=== PATIENT | female | born 1985 | race Caucasian/White ===

== ENCOUNTER 2018-11-14 21:24 | Emergency (ER) | payer BC ==
[~2018-11-14] VITALS: Ht 167.6 cm; Wt 74.8 kg
[2018-11-14] MEDS ORDERED: KETOROLAC TROMETHAMINE 15 MG INJ IVP ONE (21:45)
[2018-11-14] MEDS ORDERED: IV NORMAL SALINE 1000 ML BAG IV ONE (21:45)
[2018-11-14] MEDS ORDERED: FENTANYL CITRATE 100 MCG/2 ML AMPUL IV ONE (21:45)
--- NOTE | 2018-11-14 21:45 | NUR ---
DR. HAYWARD AT BEDSIDE FOR MSE.
[2018-11-14] MEDS ORDERED: KETOROLAC TROMETHAMINE 15 MG INJ ONE (21:54)
[2018-11-14] MEDS ORDERED: FENTANYL CITRATE 100 MCG/2 ML AMPUL ONE (21:55)
[2018-11-14 22:10] LABS: BASOPHILS # (AUTO) 0.1 K/uL (0.0-8.0); BASOPHILS % (AUTO) 0.5 % (0.0-2.0); EOSINOPHILS # (AUTO) 0.5 K/uL (0.0-0.7); HEMATOCRIT 33.5 % (31.2-41.9); HEMOGLOBIN 11.1 g/dL (10.9-14.3); LYMPHOCYTES # (AUTO) 2.2 K/uL (20.0-40.0); LYMPHOCYTES % (AUTO) 22.5 % (20.5-51.5); MEAN CORPUSCULAR HEMOGLOBIN 27.9 uug (24.7-32.8); MEAN CORPUSCULAR HGB CONC 33 g/dL (32.3-35.6); MEAN CORPUSCULAR VOLUME 84.3 fL (75.5-95.3); MONOCYTES # (AUTO) 0.5 K/uL (2.0-10.0); NEUTROPHILS # (AUTO) 6.6 K/uL (1.8-8.9); PLATELET COUNT (AUTO) 235 K/uL (179-408); RED BLOOD CELL COUNT(AUTO) 3.98 MIL/uL (3.63-4.92); WHITE BLOOD COUNT (AUTO) 9.9 K/uL (3.8-11.8)
[2018-11-14 22:13] LABS: CREATININE 0.9 mg/dL (0.6-1.3); POTASSIUM 3.7 mmol/L (3.5-5.1)
[2018-11-14 22:19] LABS: BILIRUBIN,DIRECT 0.1 mg/dL (0.0-0.2); BILIRUBIN,TOTAL 0.3 mg/dL (0.2-1.0); TOTAL PROTEIN, SERUM 7.3 g/dL (6.4-8.2)
--- NOTE | 2018-11-14 23:15 | NUR ---
Patient discharged to home in stable conditon. Written and verbal after care instructions given. Patient verbalizes understanding of instructions. PATIENT LEFT WITH STABLE GAIT.
[2018-11-14 23:16] VITALS: BP 120/68
== END 2018-11-14 23:17 | disposition home or self-care (01) ==
LOC: ER 21:27
DX: K80.20 Calculus of gallbladder without cholecystitis without obstruction (principal)
CPT/HCPCS: 76705; 80048; 80076; 83690; 85025; 99284; J1885; J3010; 36415; A4663; J7030